=== PATIENT | female | born 1990 | race Caucasian/White ===

== ENCOUNTER 2017-10-02 13:05 | Outpatient (CLI) | payer BC, SELFPAY | END 2017-10-02 13:40 | disposition home or self-care (01) | LOC: INF 13:05 | PROVIDERS: PCP Internal Medicine Adolescent Medicine; Visit Provider Surgery | DX: L05.01 Pilonidal cyst with abscess (principal); Z48.01 Encounter for change or removal of surgical wound dressing | CPT/HCPCS: G0463 ==

== ENCOUNTER 2017-10-03 12:45 | Outpatient (CLI) | payer BC, SELFPAY ==
[2017-10-03 12:45] VITALS: BP 122/70; PULSE 68; RESP 20; TEMP 36.9; O2SAT 98
[2017-10-03 13:00] VITALS: BP 118/70; PULSE 68; RESP 20; TEMP 36.9; O2SAT 96
== END 2017-10-03 13:00 | disposition home or self-care (01) ==
LOC: INF 13:22
PROVIDERS: PCP Internal Medicine Adolescent Medicine; Visit Provider Surgery
DX: L05.01 Pilonidal cyst with abscess (principal); Z48.01 Encounter for change or removal of surgical wound dressing
CPT/HCPCS: G0463

== ENCOUNTER → 2017-10-04 13:09 | Outpatient (CLI) | payer BC, SELFPAY ==
[2017-10-04 14:22] VITALS: BP 135/74; PULSE 125; RESP 18; TEMP 37.1; BMI 27.4
== END ==
PROVIDERS: PCP Internal Medicine Adolescent Medicine; Visit Provider Surgery
DX: L05.01 Pilonidal cyst with abscess (principal); Z48.01 Encounter for change or removal of surgical wound dressing
CPT/HCPCS: G0463

== ENCOUNTER → 2017-10-05 16:19 | Outpatient (CLI) | payer BC, SELFPAY ==
[2017-10-05 17:03] VITALS: BP 132/59; PULSE 89; RESP 18; TEMP 36.7
== END ==
PROVIDERS: PCP Internal Medicine Adolescent Medicine; Visit Provider Surgery
DX: L05.01 Pilonidal cyst with abscess (principal); Z48.01 Encounter for change or removal of surgical wound dressing
CPT/HCPCS: G0463

== ENCOUNTER → 2020-02-24 12:54 | Outpatient (CLI) | payer BC, SELFPAY ==
[2020-02-25 14:01] LABS: Covid-19 Nasal PCR Sendout Lex POSITIVE
== END ==
PROVIDERS: PCP Internal Medicine Adolescent Medicine; Visit Provider Internal Medicine Adolescent Medicine
DX: Z20.828 Contact with and (suspected) exposure to other viral communicable diseases (principal); U07.1 COVID-19; R51 Headache
CPT/HCPCS: U0004

== ENCOUNTER → 2020-07-04 15:40 | Outpatient (POV) | payer BC, SELFPAY | PROVIDERS: Visit Provider Dermatology | DX: Z00.00 Encounter for general adult medical examination without abnormal findings (principal) ==

== ENCOUNTER 2022-08-20 12:35 | Emergency (ER) | payer OTHER, BC, SELFPAY ==
[2022-08-20 13:15] VITALS: BP 182/86; PULSE 85; RESP 22; TEMP 37.1; O2SAT 99; BMI 35.0
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
--- NOTE | 2022-08-20 13:30 | XR_ITS ---
FINAL REPORT CLINICAL HISTORY: pain FINDINGS: LEFT HAND Three views demonstrate no acute fracture. There is no dislocation. The visualized joint spaces are normally aligned. The joint spaces are preserved. There is a small enostosis in the distal portion of the 4th middle phalange. The soft tissues are unremarkable. IMPRESSION: No acute bony abnormality. Reviewed, Interpreted and Dictated by Vu Goldstein MD Transcribed by Juliane Laura Authenticated and [facility]
--- NOTE | 2022-08-20 13:30 | XR_ITS ---
FINAL REPORT CLINICAL HISTORY: pain FINDINGS: LEFT WRIST Three views demonstrate no acute fracture or dislocation. The visualized joint spaces are normally aligned. The joint spaces are intact. The soft tissues are unremarkable. IMPRESSION: No acute bony abnormality. Reviewed, Interpreted and Dictated by Vu Goldstein MD Transcribed by Juliane Laura Authenticated and [facility]
[2022-08-20 14:55] VITALS: BP 144/89; PULSE 85; RESP 20; TEMP 37.1; O2SAT 99
== END 2022-08-20 14:54 | disposition home or self-care (01) ==
PROVIDERS: Emergency Provider Nurse Practitioner Family; PCP Internal Medicine Adolescent Medicine
DX: S63.622A Sprain of interphalangeal joint of left thumb, initial encounter (principal); W50.1XXA Accidental kick by another person, initial encounter
CPT/HCPCS: 73110; 73130; 99212; 99214; G0463

== ENCOUNTER 2022-08-31 08:27 | Emergency (ER) | payer BC, SELFPAY ==
[2022-08-31 09:00] VITALS: BP 145/93; PULSE 78; RESP 20; TEMP 37.2; O2SAT 100; BMI 33.3
--- NOTE | 2022-08-31 09:25 | EXP.UTC ---
Discharge Plan Disposition Patient Disposition: Home, Self-Care Condition: Good Prescriptions Prescriptions: New ondansetron 4 mg tablet,disintegrating 4 mg PO Q8H PRN (Reason: nausea and vomiting) Qty: 10 0RF No Action ibuprofen [IBU] 800 mg tablet 800 mg PO Q8HP PRN (Reason: Moderate Pain) Qty: 30 0RF Referrals Follow up/Referrals: Alonso Mark MD [Primary Care Provider] - See instructions Activity Restrictions/Add. Instructions Additional Instructions/Restrictions: Monitor temperature. Seek treatment if fever develops. Follow-up immediately if new or worse symptoms worsen or no noticeable improvement over 48 hours. Increase fluids such as water, Gatorade, Powerade, juice or Pedialyte with limited formula/dietary in children No food is okay as long as you are drinking. Once ready to eat start bland such as bananas, rice, applesauce, toast. Contagious until no diarrhea, vomiting, fever times 48 hours without medication Avoid antidiarrheals unless told otherwise. Best to let the virus run its course. Follow-up immediately for new or worsening symptoms or no noticeable improvement over the next 48 hours. Clinical Impressions Clinical Impression: Nausea & vomiting, Diarrhea Instructions Patient Instructions: Nausea and Vomiting-Adult, Diarrhea Discharge ED Provider: Emy ([facility])Clara [facility] [place] HPI General Stated complaint: stomach pain Mode of Arrival: Ambulatory Source of Information: Patient Limitations: No Limitations Time Seen by Provider: 08/31/22 09:25 Description of Symptoms (Recalled from Triage Doc. by RN): PATIENT C/O RECURRING NAUSEA, VOMITING AND DIARRHEA HEENT Symptoms (Recalled from RN notes): No Resp Symptoms (Recalled from RN notes): No Skin Symptoms (Recalled from RN notes): No MS Symptoms (Recalled from RN notes): No Functional Status (Recalled from RN notes): WNL History of Present Illness Provider Complaint: 32 yr old female presents for n/v/d for 4 days. pt states her had the same symptoms and he has improved but hers is lingering. Related Data Previous Rx's Medication Instructions Recorded ibuprofen 800 mg tablet (IBU) 800 mg PO Q8HP PRN Moderate Pain 08/20/22 #30 tabs ondansetron 4 mg disintegrating 4 mg PO Q8H PRN nausea and 08/31/22 tablet vomiting #10 tabs Allergies Allergy/AdvReac Type Severity Reaction Status Date / Time No Known Allergies Allergy Verified 08/22/22 14:59 Worker's Comp Is this a Worker's Comp case?: [facility] Disclaimer: The information contained in this section may have been updated after the patient was seen, as this information can be updated by other users. Social History (Reviewed 08/31/22 @ 09:26 by Clara Quevedo ([facility]), [employer]) Smoking Status: Never smoker alcohol intake: never counseling provided: none substance use type: denies use current occupational status: employed Travel in the last 8 weeks: None household members: significant other housing: house current occupation: teacher current occupational exposures/hazards: No caffeine: No ROS Obtained: Yes All systems reviewed & no additional complaints except as documented Constitutional Constitutional: Reports system reviewed and no additional complaints, except as documented and Reports as per HPI Eyes Eyes: Reports system reviewed and no additional complaints, except as documented and Reports as per HPI ENT Ears, Nose, Mouth, and Throat: Reports system reviewed and no additional complaints, except as documented and Reports as per HPI Cardiovascular Cardiovascular: Reports system reviewed and no additional complaints, except as documented Respiratory Respiratory: Reports system reviewed and no additional complaints, except as documented Gastrointestinal Gastrointestingal: Reports system reviewed and no additional complaints, except as documented, as per HPI, cramping, diarrhea, nausea and vomiting Genitourinary Female Genitourinary: Repo
[2022-08-31 09:35] LABS: Apearance,Urine Clear (Clear); Color,Urine Yellow (Yellow)
[2022-08-31 09:36] LABS: Bilirubin,Urine 1+ (Negative); Blood, Urine Negative (Negative); Glucose,Urine (UA) Negative (Negative); Ketones,Urine 40 (Negative); PH,Urine 5.5 (5.0-8.5); Protein,Urine 1+ (Negative); Specific Gravity, Urine >= 1.030 (1.005-1.030); UTC Leukocyte Esterase,Urine Negative (Negative); UTC Nitrate,Urine Negative (Negative); UTC Pregnancy Test, Urine Negative (Negative); Urobilinogen,Urine 1 EU/dl (0.2)
[2022-08-31 09:38] VITALS: BP 145/93; PULSE 78; RESP 20; TEMP 37.2; O2SAT 100
== END 2022-08-31 09:43 | disposition home or self-care (01) ==
PROVIDERS: Emergency Provider Nurse Practitioner Family; PCP Internal Medicine Adolescent Medicine
DX: R10.9 Unspecified abdominal pain (principal); R11.2 Nausea with vomiting, unspecified; R19.7 Diarrhea, unspecified
CPT/HCPCS: 81003; 81025; 99212; 99214; G0463

== ENCOUNTER → 2022-09-10 09:09 | Outpatient (CLI) | payer OTHER, SELFPAY ==
--- NOTE | 2022-09-10 09:14 | XR_ITS ---
FINAL REPORT CLINICAL HISTORY: thumb injury ...Swelling COMPARISON: August 20, 2022 FINDINGS: 3 views of the left hand were obtained. There is the stable small chip fracture of the proximal aspect of the 1st distal phalanx. The joint spaces are intact. There is no soft tissue abnormality. IMPRESSION: Stable small chip fracture of the proximal aspect of the 1st distal phalanx. Reviewed, Interpreted and Dictated by Teto Longo III, MD Transcribed by Flahs Gomez Authenticated and [facility]
== END ==
PROVIDERS: PCP Internal Medicine Adolescent Medicine; Visit Provider Orthopaedic Surgery
DX: M79.642 Pain in left hand (principal); S67.22XA Crushing injury of left hand, initial encounter
CPT/HCPCS: 73130

== ENCOUNTER → 2023-01-16 07:19 | Outpatient (CLI) | payer BC, SELFPAY ==
--- NOTE | 2023-01-16 07:37 | US_ITS ---
FINAL REPORT CLINICAL HISTORY: RUQ PAIN,RECURRENT VOMITING COMPARISON: None FINDINGS: Sonographic images of the right upper quadrant were obtained. The pancreas is unremarkable in appearanceThe liver has an unremarkable appearance.The gallbladder appears normal without evidence of gallstones.There is no evidence of biliary ductal dilatation.The common duct measures 4mm. Limited images of the right kidney are unremarkable. IMPRESSION: Unremarkable right upper quadrant ultrasound. Reviewed, Interpreted and Dictated by Teto Longo III, MD Transcribed by Susan Quinones Authenticated and [facility]
[2023-01-16 08:00] LABS: Basophils # 0.1 K/mm3 (0-0.2); Basophils % 0.7 % (0.1-2.0); Eosinophils # 0.2 K/mm3 (0.0-0.4); Eosinophils % 2.3 % (0.1-12.0); Hematocrit 46.3 % (37.0-47.0); Hemoglobin 14.8 g/dL (12.2-16.2); Lymphocytes % 29.7 % (10-50); Mean Corpuscular HGB Conc 31.9 g/dL (31.8-35.4); Mean Corpuscular Hemoglobin 28.8 pg (27.0-31.2); Mean Corpuscular Volume 90.3 fl (81-99); Mean Platelet Volume 8.4 fl (7.4-10.4); Monocytes # 0.3 K/mm3 (0.1-1.0); Monocytes % 4.3 % (1.7-9.3); Neutrophils # 4.3 K/mm3 (1.8-7.8); Neutrophils % 62.9 % (37.0-80.0); Platelet Count 189 K/mm3 (142-424); Red Blood Count 5.13 M/mm3 (4.20-5.40); Red Cell Distribution Width 12.7 % (11.5-17.5); White Blood Count 6.9 K/mm3 (4.8-10.8)
[2023-01-16 08:03] LABS: Alanine Aminotransferase 21 U/L (12-78); Albumin Level 4.2 g/dl (3.5-5.0); Albumin/Globulin Ratio 1.6 (1.1-1.8); Alkaline Phosphatase 58 U/L (38-126); Amylase 52 U/L (30-110); Anion Gap 13.2 mEq/L (5-15); Aspartate Amino Transferase 18 U/L (14-36); Bilirubin,Total 0.5 mg/dl (0.2-1.3); Blood Urea Nitrogen 15 mg/dl (7-17); Calcium 9.1 mg/dl (8.4-10.2); Carbon Dioxide 27 mmol/L (22.0-30.0); Chloride 108 mmol/L (98-107); Estimated Glomerular Filt Rate 83 ml/min (>60); GFR (African American) 101 ML/MIN (>60); Globulin 2.6 g/dL (1.3-3.2); Glucose 95 mg/dl (74-100); Lipase 146 U/L (23-300); Potassium 4.2 mmoL/L (3.5-5.1); Sodium 144 mmol/L (136-145); Total Protein,Serum 6.8 g/dl (6.3-8.2)
[2023-01-16 08:23] LABS: HCG,Quantitative < 2 mIU/ml (0-5.42)
== END ==
PROVIDERS: PCP Internal Medicine Adolescent Medicine; Visit Provider Nurse Practitioner Family
DX: R10.11 Right upper quadrant pain (principal); R11.10 Vomiting, unspecified; J35.1 Hypertrophy of tonsils
CPT/HCPCS: 36415; 76705; 80053; 82150; 83690; 84702; 85025; 87070

== ENCOUNTER → 2023-01-31 09:14 | Outpatient (CLI) | payer BC, SELFPAY ==
--- NOTE | 2023-01-31 09:19 | FL_ITS ---
FINAL REPORT CLINICAL HISTORY: VOMITING fluoro time 3.12 DAP 2637.47 FINDINGS: UPPER GI EXAM HISTORY: Epigastric pain with vomiting. PROCEDURE: The patient ingested barium. Effervescent crystals were also administered. 20 radiographs were obtained. FINDINGS: The esophagus is normal. There is a small sliding-type hiatal hernia hiatal hernia. There is no gastroesophageal reflux. Peristalsis is normal. The rugal fold pattern of the stomach is normal. The duodenal bulb is poorly distended but otherwise normal. Fluoro time: 3 minutes 12 seconds. Total DAP: 2637.47 uGycm2. Fluoro dose: Not provided. DAP: Not provided. Radiation exposure in Reference air Kerma: Not provided. IMPRESSION: Small sliding-type hiatal hernia. Films reviewed , interpreted and dictated by Dr. Goldstein. Transcribed by Fidencio Boone PA-C. Reviewed, Interpreted and Dictated by Vu Goldstein MD Transcribed by CRISTY Gomez Authenticated and . [facility]
== END ==
PROVIDERS: PCP Internal Medicine Adolescent Medicine; Visit Provider Nurse Practitioner Family
DX: R10.11 Right upper quadrant pain (principal); R11.10 Vomiting, unspecified
CPT/HCPCS: 74246

== ENCOUNTER 2023-02-17 19:48 | Emergency (ER) | payer BC, SELFPAY ==
[2023-02-17 19:49] VITALS: BP 130/92; PULSE 115; RESP 20; TEMP 36.7; O2SAT 98; BMI 34.3
[2023-02-17 20:33] LABS: Basophils % 0.6 % (0.1-2.0); Eosinophils # 0.1 K/mm3 (0.0-0.4); Hematocrit 52.7 % (37.0-47.0); Hemoglobin 17.4 g/dL (12.2-16.2); Lymphocytes # 0.8 K/mm3 (0.7-4.5); Lymphocytes % 10.9 % (10-50); Mean Corpuscular Hemoglobin 28.9 pg (27.0-31.2); Mean Corpuscular Volume 87.7 fl (81-99); Mean Platelet Volume 8.4 fl (7.4-10.4); Monocytes # 0.3 K/mm3 (0.1-1.0); Neutrophils # 6.1 K/mm3 (1.8-7.8); Neutrophils % 83.5 % (37.0-80.0); Platelet Count 267 K/mm3 (142-424); Red Cell Distribution Width 12.8 % (11.5-17.5); White Blood Count 7.3 K/mm3 (4.8-10.8)
[2023-02-17 20:38] LABS: Alanine Aminotransferase 27 U/L (12-78); Albumin Level 4.3 g/dl (3.5-5.0); Albumin/Globulin Ratio 1.2 (1.1-1.8); Alkaline Phosphatase 64 U/L (38-126); Anion Gap 16.3 mEq/L (5-15); Aspartate Amino Transferase 24 U/L (14-36); Bilirubin,Total 1.1 mg/dl (0.2-1.3); Blood Urea Nitrogen 21 mg/dl (7-17); Calcium 8.6 mg/dl (8.4-10.2); Carbon Dioxide 22 mmol/L (22.0-30.0); Chloride 103 mmol/L (98-107); Creatinine Clearance Estimated 145 mL/min (50-200); Estimated Glomerular Filt Rate 83 ml/min (>60); GFR (African American) 101 ML/MIN (>60); Globulin 3.5 g/dL (1.3-3.2); Glucose 108 mg/dl (74-100); Lactic Acid 1.3 mmol/L (0.7-2.1); Magnesium 1.8 mg/dl (1.6-2.3); Potassium 3.3 mmoL/L (3.5-5.1); Sodium 138 mmol/L (136-145); Total Protein,Serum 7.8 g/dl (6.3-8.2)
[2023-02-17 20:45] VITALS: PULSE 92; RESP 19; O2SAT 100
[2023-02-17 20:46] LABS: HCG Qualitative, Serum Negative (Negative)
[2023-02-17 21:44] VITALS: BP 136/88; PULSE 87; RESP 19; O2SAT 99
[2023-02-17 21:50] LABS: Microscopic, Urine URINE MICROSCOPIC (MICROSCOPIC)
[2023-02-17 21:51] LABS: Appearance,Urine CLEAR (Clear); Blood, Urine Negative (Negative); Color,Urine YELLOW (Yellow); Glucose,Urine (UA) Negative (Negative); Ketones,Urine 2+ (Negative); Leukocyte Esterase,Urine Negative (Negative); Nitrate,Urine Negative (Negative); Protein,Urine 1+ (Negative)
[2023-02-17 21:59] LABS: Bilirubin,Urine 1+ (Negative)
[2023-02-17 22:00] VITALS: BP 133/76; PULSE 88; O2SAT 99
[2023-02-17 22:09] LABS: WBC,Urine Occasional #/hpf (0-3)
[2023-02-17 22:30] VITALS: BP 129/74; PULSE 83; O2SAT 99
--- NOTE | 2023-02-17 22:36 | HMH.EDGENADL ---
Discharge Plan Disposition Patient Disposition: Home, Self-Care Prescriptions Prescriptions: New ondansetron 4 mg tablet,disintegrating 4 mg PO Q6H PRN (Reason: nausea and vomiting) Qty: 10 0RF promethazine 25 mg suppository 25 mg MO Q6H PRN (Reason: sedation) Qty: 12 0RF No Action pantoprazole 40 mg tablet,delayed release (DR/EC) 40 mg PO DAILY Referrals Follow up/Referrals: Beatriz Sandhu APRN [Primary Care Provider] - See instructions Activity Restrictions/Add. Instructions Additional Instructions/Restrictions: Call your family doctor to establish care for this visit to the emergency department and schedule follow-up within 48 hours to ensure improvement. If you have any worsening of your condition or any other concerning signs or symptoms, return to the emergency department or your primary care doctor for further evaluation. Be sure to push electrolyte containing fluids. Clinical Impressions Clinical Impression: Vomiting and diarrhea Stand Alone Forms Stand Alone Forms: Work/School Release Instructions Patient Instructions: DI for Nausea -- Adult Discharge ED Provider: Kristofer Esparza General Adult HPI General Chief complaint: Nausea/Vomiting/Diarrhea Stated complaint: weakness,vomiting, Body Aches Time Seen by Provider: 02/17/23 20:38 Mode of Arrival: Ambulatory Source of Information: Patient Limitations: No Limitations Description of Symptoms (Recalled from ER Triage Doc. by RN): 32 F presents with 24 hours of worsening nausea, vomiting, diarrhea, abdominal pain at her epigastrum with new history of hiatal hernia. Patient also adds she has body aches, fever, and overall weakness. History of Present Illness HPI narrative: 32-year-old female with history of nausea, vomiting, diarrhea, and abdominal pain. History of hiatal hernia. Patient stable to tolerate some p.o. intake, still having bowel movements and passing gas. No fevers or chills, urinary symptoms. Patient does not have any sick contacts that she knows of, but works at a daycare. Vomiting is nonbloody, nonbilious, stool is nonbloody. Related Data Home Medications Medication Instructions Recorded Confirmed pantoprazole 40 mg tablet,delayed 40 mg PO DAILY Acid Reflux 02/17/23 02/17/23 release Previous Rx's Medication Instructions Recorded ondansetron 4 mg disintegrating 4 mg PO Q6H PRN nausea and 02/18/23 tablet vomiting #10 tabs promethazine 25 mg rectal 25 mg MO Q6H PRN sedation #12 ea 02/18/23 suppository Allergies Allergy/AdvReac Type Severity Reaction Status Date / Time No Known Allergies Allergy Verified 09/10/22 09:32 [facility] Disclaimer: The information contained in this section may have been updated after the patient was seen, as this information can be updated by other users. Social History Smoking Status: Never smoker alcohol intake: never counseling provided: none substance use type: denies use current occupational status: employed Travel in the last 8 weeks: None household members: significant other housing: house current occupation: teacher current occupational exposures/hazards: No caffeine: No ROS Obtained: Yes All systems reviewed & no additional complaints except as documented Physical Exam General General appearance: alert, in no apparent distress and other ( ) Head Head exam: atraumatic and normocephalic Eye Eye exam: Present normal appearance, PERRL and EOMI ENT ENT exam: Present mucous membranes moist Neck Neck exam: Present normal inspection, full ROM and trachea midline Respiratory Respiratory exam: Present normal lung sounds bilaterally; Absent respiratory distress, wheezes, stridor, accessory muscle use or prolonged expiratory phase Cardiovascular Cardiovascular exam: Present regular rate and normal rhythm Abdominal Exam Abdominal exam: Present soft; Absent distention, tenderness,
[2023-02-17 22:50] LABS: Lipase 67 U/L (23-300)
[2023-02-18 00:36] VITALS: BP 133/84; PULSE 84; RESP 19; TEMP 36.8; O2SAT 97
== END 2023-02-18 00:36 | disposition home or self-care (01) ==
PROVIDERS: Emergency Provider Emergency Medicine; PCP Nurse Practitioner Family
DX: R10.13 Epigastric pain (principal); R11.2 Nausea with vomiting, unspecified; R19.7 Diarrhea, unspecified
CPT/HCPCS: 80053; 81001; 83605; 83690; 83735; 84703; 85025; 87045; 96361; 96374; 96375; 99285; J2405

== ENCOUNTER 2023-03-26 09:53 | Day surgery (SDC) | payer BC, SELFPAY ==
[2023-03-21 11:25] VITALS: BMI 32.5
--- OUTSIDE RECORDS SUMMARY | 2023-03-26 09:58 | XMS_ITS | Patient Health Record ---
Author Name Unknown Organization [facility] Address [address] [place] [address] Care Team Providers Care Safety Investigator/Cause Analyst Name Role Phone Chanelle Dueñas Primary Care Provider [phone] Beatriz Sandhu Unavailable [phone] ALLERGIES No Known Allergies RESULTS Component Value Reference Range Notes M-Throat Culture Reviewed date:01/20/2023 09:46:23 AM Interpretation: Performing Lab: Notes/Report: CUTC Normal Upper Respira tory Alicia M-HCG,Quantitative Reviewed date:01/16/2023 05:22:10 PM Interpretation: Performing Lab: Notes/Report: HCG < 2 0-5.42 mIU/ml Gestational Age B-HCG Range 1 - 10 weeks 44.71 - 256,740 11 - 15 weeks 11,556 - 265,380 16 - 22 weeks 7480.8 - 111,954 23 - 40 weeks 1531.1 - 101,566 M-Lipase Reviewed date:01/16/2023 05:21:53 PM Interpretation: Performing Lab: Notes/Report: LIP 146 23-300 U/L M-Amylase Reviewed date:01/16/2023 05:21:47 PM Interpretation: Performing Lab: Notes/Report: HEIDI 52 30-110 U/L M-Comprehensive Metabolic Pa jenna Reviewed date:01/20/2023 09:46:17 AM Interpretation: Performing Lab: Notes/Report: NA 144 136-145 mmol/L K 4.2 3.5-5.1 mmoL/L CL 108 98-107 mmol/L CO2 27 22.0-30.
[2023-03-26 10:38] VITALS: BP 132/76; PULSE 72; RESP 18; TEMP 36.1; O2SAT 100
[2023-03-26 10:44] LABS: Urine Pregnancy, HCG Qual. Negative (Negative)
--- NOTE | 2023-03-26 11:16 | EXP.ANES.CKL ---
[facility] Disclaimer: The information contained in this section may have been updated after the patient was seen, as this information can be updated by other users. Medical History Diarrhea Dysphagia Nausea & vomiting Pilonidal cyst Pilonidal cyst Surgical History History of excision of pilonidal cyst Family History Other No significant family history Social History Smoking Status: Never smoker alcohol intake: never counseling provided: none substance use type: denies use current occupational status: employed Travel in the last 8 weeks: None household members: significant other housing: house current occupation: teacher current occupational exposures/hazards: No caffeine: No [facility] Anesthesia Checklist Patient Identification Patient Identification: Arm Band and Verbal (Name & ) Structural Data Admitted From: Home Planned Operative Procedure/s: EGD Consent for Planned Operative Procedure(s) Verified: Yes NPO Status Verified Time NPO: 00:00 Chart Verification Results Verified: HCG Additional verifications Anesthesia Reactions: No Hx Blood Transfusions: No Blood Transfusion Reaction: No Airway Assessment Mallampati Score:: Class I C-Spine Mobility Assessed: Yes TMJ Mobility Assessed: Yes Dentition: Good Dentition Neurological Assessment Level of Consciousness: Awake Hx Seizures: No Numbness or tingling in extremities: No Anesthesia Plan Anesthesia Risk discussed: Yes Anesthesia Plan: Verified ASA Class: II Anesthesia Type: MAC
--- NOTE | 2023-03-26 12:17 | HMH.SCOPE ---
Procedure: Date: 03/26/23 Patient Date of :: 1990 Procedure Performed:: EGD Indications:: The patient is a 32 year old with nausea, vomiting, abdominal hernández, and dysphagia symptoms Performing Provider:: Greg Rajput MD Referring Provider:: Beatriz Sandhu APRN Sedation:: See RN records Procedure:: The gastroscope was gently passed through the incisoral orifice into the oral cavity and under direct visualization the esophagus was intubated. The endoscope was passed down the esophagus, through the stomach, and into the duodenum. Color, texture, mucosa, and anatomy of the esophagus, stomach, and duodenum were carefully examined with the scope. Findings:: Oropharynx: normal Esophagus: normal. Biopsies obtained. Empiric dilatation performed with 54F bougie dilatation EG Junction: intact at 40 cm Cardia: normal Fundus: normal Body: normal. Biopsy obtained Antrum: normal. Biopsy obtained Duodenal bulb: normal Duodenum (second and third portion): normal. Biopsies obtained Recommendations:: Await pathology results Follow up in GI office Complications:: none Estimated blood obtained (mL): 0 Colonoscopy Component Colonoscopy Component Was a colonoscopy performed during today's procedure?: No
[2023-03-26 12:20] VITALS: BP 115/67; PULSE 75; RESP 12; TEMP 36.7; O2SAT 95
[2023-03-26 12:30] VITALS: BP 132/92; PULSE 83; RESP 14; O2SAT 97
[2023-03-26 12:40] VITALS: BP 123/63; PULSE 59; RESP 14; O2SAT 100
[2023-03-26 12:50] VITALS: BP 119/64; PULSE 64; RESP 16; O2SAT 100
== END 2023-03-26 13:05 | disposition home or self-care (01) ==
PROVIDERS: PCP Nurse Practitioner Family; Visit Provider Internal Medicine
PROC: 0DJ08ZZ Inspection of Upper Intestinal Tract, Via Natural or Artificial Opening Endoscopic (ICD-10-PCS; CPT 43235; principal; 2023-03-26 11:00)
DX: R13.10 Dysphagia, unspecified (principal); K29.50 Unspecified chronic gastritis without bleeding; R11.2 Nausea with vomiting, unspecified; R10.9 Unspecified abdominal pain
CPT/HCPCS: 43239; 43248; 81025

== ENCOUNTER → 2023-04-22 09:45 | Outpatient (CLI) | payer BC, SELFPAY ==
--- NOTE | 2023-04-22 09:46 | NM_ITS ---
FINAL REPORT TECHNIQUE: Sequential anterior images were obtained after the ingestion of eggs radiolabeled with mCi technetium 99M sulfur colloid. CLINICAL HISTORY: Nausea and vomiting greater than 4 hours after eat FINDINGS: GASTRIC EMPTYING SCAN Static images show normal emptying of the stomach into the small bowel. Based on the time activity curve, the estimated half-emptying time is abnormally prolonged at 122 minutes. IMPRESSION: Abnormally prolonged gastric emptying study which may reflect gastroparesis or gastric outlet obstruction. Reviewed, Interpreted and Dictated by Teto Longo III, MD Transcribed by Ely Cordon Authenticated and [facility]
== END ==
PROVIDERS: PCP Nurse Practitioner Family; Visit Provider Nurse Practitioner
DX: R11.10 Vomiting, unspecified (principal)
CPT/HCPCS: 78264; A9541

== ENCOUNTER 2023-06-19 09:50 | Day surgery (SDC) | payer BC, SELFPAY ==
[2023-06-16 13:24] VITALS: BMI 32.5
[2023-06-19] VITALS (8 sets, daily range): BP systolic 108–140; BP diastolic 69–84; PULSE 74–103; RESP 16–18; TEMP 36.3–36.6; O2SAT 97–100
[2023-06-19] MEDS: LACTATED RINGERS 1000ML 1,000 ML 25 ML IV (10:12)
[2023-06-19 10:14] LABS: Urine Pregnancy, HCG Qual. Negative (Negative)
--- NOTE | 2023-06-19 10:20 | P.PNANES_ITS ---
[facility] Disclaimer: The information contained in this section may have been updated after the patient was seen, as this information can be updated by other users. Medical History Diarrhea Dysphagia Nausea & vomiting Pilonidal cyst Pilonidal cyst Surgical History History of excision of pilonidal cyst Family History Other Family history of cancer Family history of diabetes mellitus type II Family history of myocardial infarction Family history of stroke Social History Smoking Status: Never smoker alcohol intake: never counseling provided: none substance use type: denies use current occupational status: employed Travel in the last 8 weeks: None household members: significant other housing: house current occupation: teacher current occupational exposures/hazards: No caffeine: No [facility] Anesthesia Checklist Patient Identification Patient Identification: Arm Band, Family () and Verbal (Name & ) Structural Data Admitted From: Home Planned Operative Procedure/s: EGD/Colonoscopy Consent for Planned Operative Procedure(s) Verified: Yes Verified Documents: Surgical Consent and History and Physical NPO Status Verified Time NPO: 06:30 Chart Verification Results Verified: CBC, BMP and HCG Additional verifications Patient : No Anesthesia Reactions: No Hx Blood Transfusions: No Blood Transfusion Reaction: No Cardiovascular Assessment Heart Sounds: S1 & S2 Pulse Rhythm: Irregular Peripheral Edema: No Airway Assessment Mallampati Score:: Class II C-Spine Mobility Assessed: Yes (FROM) TMJ Mobility Assessed: Yes Dentition: Good Dentition (Nothing loose per pt.) Neurological Assessment Level of Consciousness: Awake, Alert, Appropriate and Follows Commands Hx Seizures: No Numbness or tingling in extremities: No Anesthesia Plan Anesthesia Risk discussed: Yes Anesthesia Plan: Verified ASA Class: II Anesthesia Type: MAC
--- NOTE | 2023-06-19 10:51 | HMH.SCOPE ---
Procedure: Date: 06/19/23 Patient Date of :: 1990 Procedure Performed:: EGD & dilation Indications:: Recureent dysphagia Performing Provider:: Michelle Hines MD Referring Provider:: Haleigh Hines APRN Sedation:: Propofol Procedure:: The gastroscope was gently passed through the incisoral orifice into the oral cavity and under direct visualization the esophagus was intubated. The endoscope was passed down the esophagus, through the stomach, and into the duodenum. Color, texture, mucosa, and anatomy of the esophagus, stomach, and duodenum were carefully examined with the scope. Findings:: Oropharynx: normal Esophagus: normal, dilated with several passes of the 58F bougie EG Junction: intact at 40 cm Cardia: normal Fundus: normal Body: normal Antrum: normal Duodenal bulb: normal Duodenum (second and third portion): normal Impression: Symptomatic dysphagia treated with bougie dilation Recommendations:: Repeat dilation in about THREE years or so, sooner if clinically indicated Complications:: None Estimated blood obtained (mL): 0 Colonoscopy Component Colonoscopy Component Was a colonoscopy performed during today's procedure?: No
--- NOTE | 2023-06-19 10:53 | [facility].SCOPE ---
Procedure: Date: 06/19/23 Patient Date of :: 1990 Procedure Performed:: Colonoscopy with biopsies and snare polypectomy Indications:: Chronic constipation Performing Provider:: Michelle Hines MD Referring Provider:: Haleigh Hines APRN Sedation:: Propofol Procedure:: After placing the patient in the left lateral decubitus position, the colonoscopy was gently inserted into the rectum and under direct visualization advanced to the cecum which was identified by transillumination in the right lower quadrant, identification of the ileocecal valve, appendiceal orifice, and cecal strap. Color, texture, mucosa, and anatomy of the colon were carefully examined with the scope. Findings:: Anal canal: normal Rectum: normal. 0.25cm polyp identified and removed with biopsy forceps Sigmoid colon: normal, 0.5 cm polyp identified and removed with cold snare Descending colon: normal without polyps or inflammatory changes Splenic flexure: normal Transverse colon: normal without polyps or inflammatory changes Hepatic flexure: normal Ascending colon: normal without polyps or inflammatory changes Cecum: normal Terminal ileum: not visualized Impression: polyps of the sigmoid and rectum No evidence of obstruction or strictures Specimens:: Polyps Recommendations:: Follow up examination in about THREE years or so, sooner if clinically indicated due to findings of polyps Complications:: None Estimated blood obtained (mL): 0 Colonoscopy Component Colonoscopy Component Was a colonoscopy performed during today's procedure?: Yes Recommended follow up colonoscopy of at least 10 years?: No If no, follow up colonoscopy recommended in ___ years?: THREE Reason for not recommending >/= 10 yr follow-up interval?: Polyps
--- NOTE | 2023-06-19 10:59 | P.PNANES_ITS ---
[facility] Anesthesia Record Part I Anesthesia Record I Intake, IV Amount: 200 Hydration: Adequate Estimated blood loss (mL): 1 Urine output (mL): 0 Blood Products used (#): none Blood Pressure: 118/73 SaO2: 98 Pulse Rate: 99 Airway Patency: Patent Respiratory Rate: 16 Temperature: 97.4 F Patient is:: Drowsy and Stable Stable to PACU at:: 10:57
== END 2023-06-19 11:49 | disposition home or self-care (01) ==
PROVIDERS: PCP Nurse Practitioner Family; Visit Provider Internal Medicine Gastroenterology
PROC: 0DJ08ZZ Inspection of Upper Intestinal Tract, Via Natural or Artificial Opening Endoscopic (ICD-10-PCS; CPT 43235; principal; 2023-06-19 11:00)
DX: R13.10 Dysphagia, unspecified (principal); K59.09 Other constipation; D12.8 Benign neoplasm of rectum; D12.5 Benign neoplasm of sigmoid colon
CPT/HCPCS: 43248; 45380; 45385; 81025